=== PATIENT | female | born 1970 | race Caucasian/White ===

== ENCOUNTER 2016-10-21 04:07 | Emergency (ER) | payer OTHER ==
[~2016-10-21] VITALS: Ht 162.6 cm; Wt 122.7 kg
[~2016-10-21 04:07] MED LIST: IBUPROFEN800 MG PO; LEVAQUIN500 MG PO; LISINOPRIL10 MG PO; TAMIFLU75 MG PO; TRAMADOL HCL50 MG PO
[2016-10-21 04:10] VITALS: BP 147/82
[2016-10-21 04:39] LABS: MCH 27.8 PG (29.0-34.0); MCHC 33.2 G/DL (30.0-36.0); MCV 83.7 FL (83-99); MEAN PLAT.VOLUME 8.3 uM^3 (9.5-12.4); PLATELET COUNT 312 K/uL (156-360); RBC DIS.WIDTH-CV 13.8 % (11.8-14.6); RBC DIS.WIDTH-SD 41.6 % (39-53); WHITE BLOOD COUNT 8.4 K/uL (4.1-10.2)
[2016-10-21 04:51] LABS: CHLORIDE 103 mEq/L (99-109); POTASSIUM 4.1 mEq/L (3.7-5.4); SODIUM 137 mEq/L (136-147)
[2016-10-21 04:53] LABS: GLUCOSE 115 mg/dL (70-99)
[2016-10-21 04:54] LABS: ANION GAP 13 MEQ/L (2-14)
[2016-10-21 04:56] LABS: GFR ESTIMATE (CALCULATED) > 59 mL/min/
[2016-10-21 04:57] LABS: UREA NITROGEN (BUN) 9 mg/dL (9-23)
[2016-10-21 05:01] LABS: TROP-I INTERPRETATION NEGATIVE; TROPONIN-I < 0.01 ng/mL (0.0-0.30)
[2016-10-21 05:17] LABS: TOTAL BILIRUBIN 0.5 mg/dL (0.0-1.0)
[2016-10-21 05:18] LABS: ALKALINE PHOSPHATASE 73 IU/L (3-129)
[2016-10-21 05:20] LABS: DIRECT BILIRUBIN 0.2 mg/dL (0.0-0.3)
[2016-10-21 05:22] LABS: LIPASE 26 U/L (1.0-51.0)
[2016-10-21 07:11] LABS: TROP-I INTERPRETATION NEGATIVE; TROPONIN-I < 0.01 ng/mL (0.0-0.30)
== END 2016-10-21 07:39 | disposition home or self-care (01) ==
LOC: EME 04:07
PROVIDERS: Emergency Medicine
DX: R07.9 Chest pain, unspecified (principal); Z88.2 Allergy status to sulfonamides; E03.9 Hypothyroidism, unspecified; I10 Essential (primary) hypertension
CPT/HCPCS: 71020; 80048; 80076; 83690; 84484; 85027; 93005; 99281; 99284